=== PATIENT | female | born 1965 | race Caucasian/White ===

== ENCOUNTER 2016-10-15 17:38 | Observation (INO) | payer OTHER ==
[~2016-10-15] VITALS: Ht 165.1 cm; Wt 76.2 kg
[2016-10-15 19:06] LABS: HEMOGLOBIN 15.8 gm/dl (12.3-15.3); RED BLOOD COUNT 4.65 M/UL (4.00-5.10); WHITE BLOOD COUNT 8.2 K/UL (4.5-11.0)
[2016-10-15 19:31] LABS: BUN/CREATININE RATIO 13 (0-10)
[2016-10-16 06:46] LABS: HEMOGLOBIN 14.6 gm/dl (12.3-15.3); RED BLOOD COUNT 4.24 M/UL (4.00-5.10); WHITE BLOOD COUNT 8.6 K/UL (4.5-11.0)
[2016-10-16 08:13] LABS: BUN/CREATININE RATIO 18 (0-10)
[2016-10-16] MEDS ORDERED: PLAVIX 75 MG TA75 MG PO (08:31)
[2016-10-16] MEDS ORDERED: METOPROLOL TART25 MG PO (08:32)
[2016-10-16] MEDS ORDERED: ASPIRIN81 MG PO (08:32)
[2016-10-16] MEDS ORDERED: FUROSEMIDE20 MG PO (08:32)
[2016-10-16] MEDS ORDERED: NITROSTAT 0.40.4 MG SL (08:33)
[2016-10-17 06:58] LABS: HEMOGLOBIN 13.6 gm/dl (12.3-15.3); RED BLOOD COUNT 4.12 M/UL (4.00-5.10); WHITE BLOOD COUNT 7.9 K/UL (4.5-11.0)
[2016-10-17 07:56] LABS: BUN/CREATININE RATIO 20 (0-10)
[2016-10-17] MEDS ORDERED: LIPITOR TAB 2020 MG PO (10:01)
[2016-10-17] MEDS ORDERED: RANEXA500 MG PO (10:02)
[2016-10-17] MEDS ORDERED: IMDUR ER TAB 3030 MG PO (10:02)
[2016-10-17] MEDS ORDERED: LISINOPRIL5 MG PO (10:03)
== END 2016-10-17 10:20 | disposition home or self-care (01) ==
LOC: ER1 17:38 → ZEROF 22:27 → M/S 10-16 07:49
PROVIDERS: Physician Assistant; Student in an Organized Health Care Education/Training Program; ADMIT Internal Medicine
DX: R07.9 Chest pain, unspecified (principal); R53.1 Weakness; I50.22 Chronic systolic (congestive) heart failure; I27.2 Other secondary pulmonary hypertension; I25.5 Ischemic cardiomyopathy; I25.2 Old myocardial infarction; I25.10 Atherosclerotic heart disease of native coronary artery without angina pectoris; E87.2 Acidosis; D58.2 Other hemoglobinopathies; F17.210 Nicotine dependence, cigarettes, uncomplicated; Z86.79 Personal history of other diseases of the circulatory system; Z98.61 Coronary angioplasty status; Z79.82 Long term (current) use of aspirin; Z79.02 Long term (current) use of antithrombotics/antiplatelets; Z79.899 Other long term (current) drug therapy; Z85.828 Personal history of other malignant neoplasm of skin; Z95.0 Presence of cardiac pacemaker; Z82.49 Family history of ischemic heart disease and other diseases of the circulatory system; Z88.1 Allergy status to other antibiotic agents; Z88.8 Allergy status to other drugs, medicaments and biological substances
CPT/HCPCS: ECHO; 36415; 70450; 70496; 70498; 71020; 71275; 80048; 80053; 81001; 82550; 82553; 83605; 83735; 83874; 84439; 84443; 84484; 85025; 85027; 85610; 85730; 87086; 93005; 93306; 96361; 96374; 96375; 96376; 99285; G0378; G0480; J2405; J7030; J7050; Q9963